=== PATIENT | female | born 1990 | race Two or more races ===

== ENCOUNTER 2018-01-11 09:00 | Inpatient (IN) | payer MEDICAID, OTHER ==
[2018-01-11] MEDS ORDERED: CEFAZOLIN 2 GM/D5W RTU 2 GM/50 ML RTUPB IV PRN (13:25)
[2018-01-11] MEDS ORDERED: RINGERS SOLUTION,LACTATED 1,000 ML IV PRN ×2 (13:26)
[2018-01-11] MEDS ORDERED: PHENYLEPHRINE HCL INJ/PF 10 MG/1 ML SDV ONE (13:59)
[2018-01-11] MEDS ORDERED: ACETAMINOPHEN 1,000 MG/100 ML RTUPB IV ONE (13:59)
[2018-01-11] MEDS ORDERED: BUPIVACAINE HCL/DEX-WATER/PF 15 MG/2 ML AMPULE ONE (13:59)
[2018-01-11] MEDS ORDERED: OXYTOCIN 10 UNIT/ML VIAL ONE ×2 (13:59→14:42)
[2018-01-11] MEDS ORDERED: CITRIC ACID/SODIUM CITRATE ORAL SOLN 15 ML UDCUP ONE ×2 (13:59→14:44)
[2018-01-11] MEDS ORDERED: ONDANSETRON HCL INJ/PF 4 MG/2 ML SDV ONE ×2 (13:59→14:41)
[2018-01-11 14:02] LABS: APPEARANCE,URINE SLIGHTLY-CLOUDY; BILIRUBIN,URINE NEGATIVE (NEGATIVE); COLOR,URINE YELLOW; GLUCOSE, URINE NEGATIVE (NEGATIVE); KETONES,URINE 20 mg/dL (NEGATIVE); LEUKOCYTE ESTERASE,URINE NEGATIVE (NEGATIVE); NITRITE,URINE NEGATIVE (NEGATIVE); PROTEIN,URINE NEGATIVE (NEGATIVE); URIC ACID CRYSTALS,URINE RARE /HPF; URINE SPECIFIC GRAVITY 1.017; UROBILINOGEN,URINE NEGATIVE mg/dL (<2.0)
[2018-01-11 14:05] LABS: ABSOLUTE EOSINOPHILS # (AUTO) 0.1 10^3/uL (0.0-0.6); ABSOLUTE LYMPHOCYTES (AUTO) 1.9 10^3/uL (0.5-4.7); ABSOLUTE MONOCYTES (AUTO) 0.5 10^3/uL (0.1-1.4); ABSOLUTE NEUT (AUTO) 5.7 10^3/uL (1.7-8.2); BASOPHILS % (AUTO) 0.3 % (0-2); EOSINOPHILS % (AUTO) 1.5 % (0-6); HEMATOCRIT 30.9 % (36.0-47.0); HEMOGLOBIN 10.2 g/dL (12.0-15.5); MEAN CORPUSCULAR HGB CONC 32.9 g/dL (32.0-36.0); MEAN CORPUSCULAR VOLUME 82 fl (80-97); MONOCYTES % (AUTO) 6.6 % (3-13); PLATELET COUNT 140 10^3/uL (150-450); RED BLOOD COUNT 3.76 10^6/uL (3.72-5.28); RED CELL DISTRIBUTION WIDTH 17.6 % (11.5-14.0); SEGMENTED NEUTROPHILS % (AUTO) 68.6 % (42-78); TOTAL CELLS COUNTED % (AUTO) 100 %; WHITE BLOOD COUNT 8.3 10^3/uL (4.0-10.5)
[2018-01-11 14:06] LABS: URINE AMPHETAMINES SCREEN NEGATIVE; URINE BARBITURATES SCREEN NEGATIVE; URINE BENZODIAZEPINES SCREEN NEGATIVE; URINE COCAINE SCREEN NEGATIVE; URINE MARIJUANA (THC) SCREEN NEGATIVE; URINE METHADONE SCREEN NEGATIVE; URINE PHENCYCLIDINE SCREEN NEGATIVE
[2018-01-11] MEDS ORDERED: EPHEDRINE SULFATE INJ 50 MG/1 ML AMPULE ONE (14:42)
[2018-01-11] MEDS ORDERED: FENTANYL CITRATE INJ/PF 100 MCG/2 ML AMPUL ONE (14:42)
[2018-01-11] MEDS ORDERED: MIDAZOLAM 2 MG/2 ML INJ ONE (14:42)
[2018-01-11] MEDS ORDERED: MISOPROSTOL 0.2 MG TABLET ONE (14:57)
[2018-01-11 15:14] LABS: CHLAM PCR NOT DETECTED (NOT DETECT); GON PCR NOT DETECTED (NOT DETECT)
[2018-01-11] MEDS ORDERED: MEASLES,MUMPS&RUBELLA VACC/PF 0.5 ML VIAL SUBCUT PRN (15:34)
[2018-01-11] MEDS ORDERED: OXYTOCIN/NORMAL SALINE 20 UNIT/1,000 ML RTUINJ IV PRN (15:34)
[2018-01-11] MEDS ORDERED: ACETAMINOPHEN 325 MG TABLET PO PRN (15:34)
[2018-01-11] MEDS ORDERED: PROMETHAZINE HCL INJ 25 MG/1 ML VIAL IV PRN (15:34)
[2018-01-11] MEDS ORDERED: SIMETHICONE 80 MG TAB.CHEW PO PRN (15:34)
[2018-01-11] MEDS ORDERED: OXYCODONE-ACETAMINOPHEN 5-325 MG TABLET PO PRN (15:34)
[2018-01-11] MEDS ORDERED: DIPH/PERTUSS(ACELL)/TETANUS VAC/PF 0.5 ML SYR (>=10YO) IM PRN (15:34)
[2018-01-11] MEDS ORDERED: MORPHINE SULFATE 10 MG/ML INJ IM PRN (15:34)
--- NOTE | 2018-01-11 15:36 | PDOC DELIVERY SUMMARY ---
Delivery Summary - Maternal Hx : V Hx # Term Pregnancies: 4 Hx # Pregnancies: 0 Hx Total # of Abortions (Sponateous & Elective): 0 LINETTE: 01/18/18 Gestational Age: 39 Ruptured Membranes: AROM Fluids: Clear - Delivery Labor: Not In Labor Uterine Contraction Monitoring: External Support Person Present: Yes : Scheduled
[2018-01-11] MEDS ORDERED: OXYTOCIN/NORMAL SALINE 20 UNIT/1,000 ML RTUINJ ONE (15:42)
[2018-01-11] MEDS ORDERED: ACETAMINOPHEN 1,000 MG/100 ML RTUPB IV PRN (16:00)
--- NOTE | 2018-01-11 16:26 | Delivery Summary ---
Del Sum A-C Datetime Report Generated by CPN: 01/11/2018 16:25 DELIVERY PERSONNEL DELIVERY PERSONNEL: [id number] Delivery Doctor:: Ryne Wilson MD Anesthesiologist:: America Joshua MD CUSTOMER SERVICE ANALYST:: Shree Finley CRNA Labor and Delivery Nurse:: Rochelle Rhodes RNbarrel header Nurse:: Lori Dawn RN Milk Bottling Machine Operator:: Kathryn Carias RN Sample Supervisor/WRAPPER STRIPPER: ST Alhaji Sample Supervisor/WRAPPER STRIPPER: Brandee Erwin, GERIATRIC AIDE MATERNAL INFORMATION Delivery Anesthesia: Spinal Medications After Delivery: Pitocin Drip 20 Units/1000ml NSS Meds After Delivery Comment: Pitocin 20 units Maternal Complications: Other LABOR INFORMATION Reason for Induction: Not Applicable STAGES OF LABOR Stage 3 hr: 0 Stage 3 min: 1 VAGINAL DELIVERY Episiotomy: None Laceration #1: None Laceration Extension #1: N/A Sponge Count Correct: N/A CSECTION DELIVERY Primary Indication: Repeat Elective Secondary Indication: N/A CSection Urgency: Scheduled CSection Incidence: Repeat Labor: No Labor Elective: Elective CSection Incision: Lower Uterine Transverse BABY A INFORMATION Delivery Date/Time: 01/11/2018 15:11 Method of Delivery: Born in Route : No : N/A Forceps: N/A Vacuum Extraction: N/A PRESENTATION/POSITION BABY A Presentation: Cephalic Cephalic Presentation: Vertex Breech Presentation: N/A PLACENTA INFORMATION BABY A Placenta Delivery Time : 01/11/2018 15:12 Placenta Method of Delivery: Manual Removal Placenta Status: Delivered SCORES BABY A Heart Rate 1 min: >100 bpm Resp Effort 1 min: Good Cry Reflex Irritability 1 min: Cough or Sneeze or Pulls Away Muscle Tone 1 min: Active Motion Color 1 min: Blue/Pale Resuscitation Effort 1 min: Tactile Stimulation SCORE 1 MIN: 8 Heart Rate 5 min: >100 bpm Resp Effort 5 min: Good Cry Reflex Irritability 5 min: Cough or Sneeze or Pulls Away Muscle Tone 5 min: Active Motion Color 5 min: Body [place], Extremities Blue Resuscitation Effort 5 min: Tactile Stimulation SCORE 5 MIN: 9 INFORMATION BABY A Gestational Age at Delivery: 39.0 Gestational Status: Full Term- 39- 40.6 Weeks Infant Outcome : Liveborn Infant Condition : Stable Infant Sex: Female IDENTIFICATION BABY A Infant Verification Date/Time: 01/11/2018 15:15 ID Band Number: [id number] Mother's Name Verified: Yes Infant RN Verifying Infant: Kenshaye, RN and , RN WEIGHT/LENGTH BABY A Infant Birthweight (gm): 3005 Weight (lb): 6 Infant Weight (oz): 10 Infant Length (in): 19.50 Length (cm): 49.53 CORD INFORMATION BABY A No. Cord Vessels: 3 Nuchal Cord : N/A Cord Blood Taken: Yes-For Storage (Mom's Blood type +) ASSESSMENT BABY A Infant Complications: None Physical Findings at Delivery: Within Normal Limits Skin to Skin: No Transferred To: Nursery SIGNATURES Signature: with User ID: [email or web address]
[2018-01-11] MEDS ORDERED: OXYCODONE-ACETAMINOPHEN 5-325 MG TABLET ONE (17:28)
[2018-01-11] MEDS: OXYCODONE-ACETAMINOPHEN 5-325 MG TABLET PO PRN ×2 (17:28→21:35)
[2018-01-11] MEDS: DOCUSATE SODIUM 100 MG CAPSULE PO SCH (18:51)
[2018-01-11] MEDS: KETOROLAC TROMETHAMINE INJ/PF 30 MG/1 ML SDV IV SCH (18:51)
--- NOTE | 2018-01-11 19:31 | OPERATIVE REPORT E ---
Operative Report NAME: REHANA LAM : 1990 AGE: 27Y DATE OF SURGERY: 01/11/2018 ROOM: 216 PREOPERATIVE DIAGNOSIS: Intrauterine (IUP) at term with 4 prior sections. POSTOPERATIVE DIAGNOSIS: Intrauterine (IUP) at term with 4 prior sections. PROCEDURE: Repeat low transverse section, delivery of a viable female, scores of 8 and 9, and 6 pounds 10 ounces. ESTIMATED BLOOD LOSS: Less than 600 mL. TISSUE REMOVED: Placenta. SURGEON: Binu RODRIGUEZ M.D. ANESTHESIA: Spinal. DETAILS OF PROCEDURE: The patient was placed in a supine position, rolled on her right side, prepped and draped in a sterile fashion. A Pfannenstiel incision was made through an existing Pfannenstiel eschar and the incision extended through subcutaneous tissue and fascia with sharp dissection. The fascia was sharply divided. Rectus muscles were bluntly and sharply divided. Parietal peritoneum was entered with sharp dissection. Uterus nicked in midline and extended bilaterally. was then delivered through the uterine and abdominal incision. Nose and mouth suctioned with a bulb syringe. Cord was clamped and the was passed from the table. The placenta was manually extracted. The uterus was closed in 2 layers using 0 Vicryl, first a running stitch and the second a Lembert stitch imbricating the first layer. Several areas of bleeding were noted, were controlled with [id number] sutures of 0 Vicryl and hemostasis was noted. The fascia was closed with 0 Vicryl and the skin was closed with subcuticular absorbable angel. The patient tolerated it well and was taken to recovery in good condition. The baby went to nursery in good condition. The patient's urine remained clear throughout the procedure. DICTATING PHYSICIAN: Binu RODRIGUEZ M.D. [id number] PHY#: [id number] ID: [id number] JOB#: [id number] ACCT: [id number] cc:Binu RODRIGUEZ M.D. >
[2018-01-12] MEDS: KETOROLAC TROMETHAMINE INJ/PF 30 MG/1 ML SDV IV SCH ×2 (02:59→10:13)
[2018-01-12 07:13] LABS: HEMATOCRIT 27.5 % (36.0-47.0); HEMOGLOBIN 9.2 g/dL (12.0-15.5); MEAN CORPUSCULAR HEMOGLOBIN 27.4 pg (27.0-33.4); MEAN CORPUSCULAR HGB CONC 33.3 g/dL (32.0-36.0); MEAN CORPUSCULAR VOLUME 82 fl (80-97); PLATELET COUNT 138 10^3/uL (150-450); RED BLOOD COUNT 3.35 10^6/uL (3.72-5.28); RED CELL DISTRIBUTION WIDTH 17.9 % (11.5-14.0); WHITE BLOOD COUNT 11.1 10^3/uL (4.0-10.5)
[2018-01-12] MEDS: OXYCODONE-ACETAMINOPHEN 5-325 MG TABLET PO PRN ×2 (07:59→15:06)
[2018-01-12] MEDS: PRENATAL VITAMIN W DHA CAPSULE PO SCH (10:13)
[2018-01-12] MEDS: DOCUSATE SODIUM 100 MG CAPSULE PO SCH ×2 (10:14→17:11)
--- NOTE | 2018-01-12 10:55 | PDOC PROGRESS REPORT ---
Subjective-OB Progress Note for:: 01/12/18 Subjective: Pt doing well, no concerns. She reports light bleeding, regular diet and no difficulty voiding. Physical Exam (OB) Vital Signs: Temp Pulse Resp BP Pulse Ox 98.0 F 89 18 105/69 98 01/12/18 07:38 01/12/18 07:38 01/12/18 07:38 01/12/18 07:38 01/12/18 07:38 Intake & Output 01/11/18 01/12/18 01/13/18 06:59 06:59 06:59 Intake Total 1500 Output Total 550 Balance 950 Weight 97.976 kg - PIH/Pre-Eclampsia DTR's: 2 + - Dressing Removed: No Incision: Dressing - Abdomen Description: Tender, Soft, Round Hernia Present: No Fundal Description: Firm Fundal Height: u/u - u/2 Objective-Diagnostic Laboratory: 01/12/18 06:55 01/11/18 01/11/18 01/11/18 13:20 13:52 13:52 WBC 8.3 RBC 3.76 Hgb 10.2 L Hct 30.9 L MCV 82 MCH 27.0 MCHC 32.9 RDW 17.6 H Plt Count 140 L Seg Neutrophils % 68.6 Lymphocytes % 23.0 Monocytes % 6.6 Eosinophils % 1.5 Basophils % 0.3 Absolute Neutrophils 5.7 Absolute Lymphocytes 1.9 Absolute Monocytes 0.5 Absolute Eosinophils 0.1 Absolute Basophils 0.0 Urine Color YELLOW Urine Appearance SLIGHTLY-CLOUDY Urine pH 6.0 Ur Specific [place] 1.017 Urine Protein NEGATIVE Urine Glucose (UA) NEGATIVE Urine Ketones 20 H Urine Blood NEGATIVE Urine Nitrite NEGATIVE Ur Leukocyte Esterase NEGATIVE Urine WBC (Auto) 1 Urine RBC (Auto) 0 Blood Type A POSITIVE Antibody Screen NEGATIVE 01/12/18 06:55 WBC 11.1 H RBC 3.35 L Hgb 9.2 L Hct 27.5 L MCV 82 MCH 27.4 MCHC 33.3 RDW 17.9 H Plt Count 138 L Seg Neutrophils % Lymphocytes % Monocytes % Eosinophils % Basophils % Absolute Neutrophils Absolute Lymphocytes Absolute Monocytes Absolute Eosinophils Absolute Basophils Urine Color Urine Appearance Urine pH Ur Specific [place] Urine Protein Urine Glucose (UA) Urine Ketones Urine Blood Urine Nitrite Ur Leukocyte Esterase Urine WBC (Auto) Urine RBC (Auto) Blood Type Antibody Screen Assessment and Plan(PN) - Assessment and Plan (1) Anemia Qualifiers: Anemia type: unspecified type Qualified Code(s): D64.9 - Anemia, unspecified Is this a current diagnosis for this admission?: Yes (2) Previous delivery, delivered Is this a current diagnosis for this admission?: Yes - Time Spent with Patient Time with patient: Less than 15 minutes Medications reviewed and adjusted accordingly: Yes - Disposition Anticipated Discharge: Home Within: within 24 hours
[2018-01-12] MEDS: IBUPROFEN 800 MG TABLET PO SCH ×2 (16:10→21:02)
[2018-01-13] MEDS: IBUPROFEN 800 MG TABLET PO SCH ×4 (03:03→21:25)
[2018-01-13] MEDS: OXYCODONE-ACETAMINOPHEN 5-325 MG TABLET PO PRN ×3 (07:53→17:15)
[2018-01-13] MEDS: DOCUSATE SODIUM 100 MG CAPSULE PO SCH ×2 (09:37→17:15)
[2018-01-13] MEDS: PRENATAL VITAMIN W DHA CAPSULE PO SCH (09:37)
--- NOTE | 2018-01-13 09:40 | PDOC PROGRESS REPORT ---
Subjective-OB Progress Note for:: 01/13/18 Subjective: reports bleeding slowing, pain controlled with current meds, no needs expressed Physical Exam (OB) Vital Signs: Temp Pulse Resp BP Pulse Ox 98.2 F 85 18 113/64 99 01/13/18 07:42 01/13/18 07:42 01/13/18 07:42 01/13/18 07:42 01/13/18 07:42 Intake & Output 01/12/18 01/13/18 01/14/18 06:59 06:59 06:59 Intake Total 1500 450 Output Total 550 700 Balance 950 -250 Weight 97.976 kg - Incision: Open - no drainage, tender, pt wants op site placed Closure Type: Surgical Glue - Abdomen Description: Soft, Round Hernia Present: No Fundal Description: Firm, Midline Fundal Height: u/u - u/2 - Abdominal Distension: No distension Tenderness: Nontender - Extremities Lower extremities: Charles's sign - neg Calf: Normal, Nontender Objective-Diagnostic Laboratory: 01/12/18 06:55 Assessment and Plan(PN) - Assessment and Plan (1) Previous delivery, delivered Is this a current diagnosis for this admission?: Yes (2) S/P repeat low transverse Is this a current diagnosis for this admission?: Yes - Time Spent with Patient Time with patient: Less than 15 minutes Medications reviewed and adjusted accordingly: Yes - Disposition Anticipated Discharge: Home Within: within 24 hours
[2018-01-13 09:58] LABS: HSV-I IGG AB 1.21 index (0.00-0.90)
[2018-01-14] MEDS: IBUPROFEN 800 MG TABLET PO SCH ×2 (03:32→09:28)
[2018-01-14] MEDS: OXYCODONE-ACETAMINOPHEN 5-325 MG TABLET PO PRN ×2 (03:33→09:28)
[2018-01-14] MEDS: PRENATAL VITAMIN W DHA CAPSULE PO SCH (09:27)
[2018-01-14] MEDS: DOCUSATE SODIUM 100 MG CAPSULE PO SCH (09:27)
--- NOTE | 2018-01-14 10:49 | PDOC DISCHARGE SUMMARY ---
Final Diagnosis Discharge Date: 01/14/18 - Final Diagnosis (1) Previous delivery, delivered Is this a current diagnosis for this admission?: Yes (2) S/P repeat low transverse Is this a current diagnosis for this admission?: Yes Discharge Data - Discharge Medication Prescriptions: Ferrous Sulfate [Feosol 325 mg Tablet] 325 mg PO Q12 #60 tablet Ibuprofen [Motrin 800 mg Tablet] 800 mg PO Q8HP PRN #90 tablet PRN Reason: Oxycodone HCl/Acetaminophen [Percocet 5-325 mg Tablet] 1 tab PO Q4HP PRN #30 tablet PRN Reason: Home Medications: 95/Iron Fum/Folic/Dha [ + Dha Combo Pack] 1 tab-cap PO DAILY Ferrous Sulfate [Feosol 325 mg Tablet] 325 mg PO Q12 #60 tablet 01/14/18 Ibuprofen [Motrin 800 mg Tablet] 800 mg PO Q8HP PRN #90 tablet 01/14/18 Oxycodone HCl/Acetaminophen [Percocet 5-325 mg Tablet] 1 tab PO Q4HP PRN #30 tablet 01/14/18 Reason(s) for Admission: Ceasarean Section-Repeat Procedures: NST Intrapartum Procedure(s): : Low Cervical, Transverse - Diagnosis Test Laboratory: Temp Pulse Resp BP Pulse Ox 97.9 F 72 16 112/76 98 01/14/18 07:57 01/14/18 07:57 01/14/18 07:57 01/14/18 07:57 01/14/18 07:57 01/11/18 01/11/18 01/12/18 13:20 13:52 06:55 RBC 3.76 3.35 L Hgb 10.2 L 9.2 L Hct 30.9 L 27.5 L Urine Opiates Screen NEGATIVE - Discharge information/Instructions Discharge Activity: Balance Activity w/Rest, No Lifting Over 10 Pounds, No Lifting/Push/Pulling, Pelvic Rest, No tub bath Discharge Diet: Regular Disposition: HOME, SELF-CARE Follow up with: [facility] in: 1, Weeks
[2018-01-14 11:58] VITALS: BP 120/64
== END 2018-01-14 13:00 | disposition home or self-care (01) | DRG 788 ==
LOC: UNDOADMIN 09:28 → 2S 09:28
PROVIDERS: ADMIT Obstetrics & Gynecology Gynecology; ATTEND Obstetrics & Gynecology Gynecology
PROC: 10D00Z1 Extraction of Products of Conception, Low, Open Approach (ICD-10-PCS; principal; 2018-01-11)
PROC: 3E0234Z Introduction of Serum, Toxoid and Vaccine into Muscle, Percutaneous Approach (ICD-10-PCS; 2018-01-14)
DX: O34.211 Maternal care for low transverse scar from previous cesarean delivery (principal); O99.824 Streptococcus B carrier state complicating childbirth; O99.02 Anemia complicating childbirth; D64.9 Anemia, unspecified; N85.8 Other specified noninflammatory disorders of uterus; Z3A.39 39 weeks gestation of pregnancy; Z37.0 Single live birth; Z23 Encounter for immunization
CPT/HCPCS: 1961; 36415; 80307; 81001; 85025; 85027; 86695; 86850; 86900; 86901; 87491; 87591; 90715; 94799; J0131; J1885; J2250; J2370; J2405; J2590; J3010; J3490; J7120